=== PATIENT | male | born 1970 | race Caucasian/White ===

== ENCOUNTER 2022-02-04 22:04 | Emergency (ER) | payer SELFPAY ==
[2022-02-04 22:10] VITALS: BP 120/63
--- NOTE | 2022-02-04 22:14 | ED General ---
General Stated Complaint: INTOXICATION History of Present Illness Date Seen by Provider: Feb 04, 2022 Time Seen by Provider: 10:04 Initial Comments 52-year-old male was brought in by EMS after patient had a fall in front of the bar parking lot after drinking. Patient is intoxicated and is refusing to be in the ER and wants to go home. Patient likely has a laceration on the back of his scalp and is bleeding. Patient is refusing a CAT scan of his head and is leaving AMA. Allergies and Home Medications Patient Home Medication List Home Medication List Reviewed: Yes Review of Systems Review of Systems Constitutional: other (Intoxicated) EENTM: other (Bleeding and possible laceration to the back of his scalp) Respiratory: no symptoms reported Cardiovascular: no symptoms reported Gastrointestinal: no symptoms reported Genitourinary: no symptoms reported Musculoskeletal: no symptoms reported Skin: no symptoms reported Psychiatric/Neurological: No Symptoms Reported Hematologic/Lymphatic: No Symptoms Reported Immunological/Allergic: no symptoms reported Physical Exam Vital Signs Capillary Refill : Height, Weight, BMI Height: '" Weight: lbs. oz. kg; BMI Method: General Appearance: Other (Intoxicated) HEENT: PERRL/EOMI, Other (Mild to moderate bleeding on bedsheets from possible abrasion versus laceration of the occipital area of his scalp. Patient is not allowing us to clean the wound.) Neck: Full Range of Motion, Normal Inspection, Non Tender, Supple Respiratory: Chest Non Tender, Lungs Clear Cardiovascular: Regular Rate, Rhythm Gastrointestinal: Non Tender, Soft Back: Normal Inspection, No Vertebral Tenderness Progress/Results/Core Measures Suspected Sepsis SIRS Temperature: Pulse: Respiratory Rate: Blood Pressure / Mean: Results/Orders Vital Signs/I&O Capillary Refill : Progress Note : Progress Note 1. ALCOHOL INTOXICATION WITH A FALL: -Plan is to do labs and CT head and neck, cleaned his scalp wound, give Tdap, and give IV fluids. -Patient does not want any of this to be done and is also refusing CT scanning. Patient wants to leave AMA. Risks and benefits have been explained to the patient regarding not doing a CT scanning. Patient states that he still wants to go home and he does not want to do it. Departure Impression Primary Impression: Alcohol intoxication Qualified Codes: F10.920 - Alcohol use, unspecified with intoxication, uncomplicated Additional Impressions: Fall Qualified Codes: W19.XXXA - Unspecified fall, initial encounter Left against medical advice Disposition: 07 AGAINST MEDICAL ADVICE Condition: Against Medical Advice ANGELA TOMAS MD Feb 04, 2022 22:14
== END 2022-02-04 22:12 | disposition left against medical advice (07) ==
LOC: ER FS 22:05
DX: F10.129 Alcohol abuse with intoxication, unspecified (principal); Z28.310 Unvaccinated for COVID-19; W18.30XA Fall on same level, unspecified, initial encounter; Y92.481 Parking lot as the place of occurrence of the external cause
CPT/HCPCS: 99283